=== PATIENT | female | born 1985 | race Caucasian/White ===

== ENCOUNTER 2019-01-14 08:10 | Inpatient (IN) | payer OTHER ==
[~2019-01-14] VITALS: Ht 165 cm; Wt 84.4 kg
[2019-01-14 08:43] VITALS: BP 112/74
[2019-01-14] MEDS ORDERED: PREN1TAB80 PO (08:44)
[2019-01-14] MEDS ORDERED: RINGERS SOLUTION,LACTATED 1,000 ML IV PRN (09:08)
[2019-01-14] MEDS ORDERED: OXYTOCIN 30 UNITS/LACT RINGERS 500 ML IV PRN (09:08)
[2019-01-14] MEDS ORDERED: OXYTOCIN 30 UNITS/LACT RINGERS 500 ML IV ONE ×3 (09:08→16:28)
[2019-01-14] MEDS ORDERED: METOCLOPRAMIDE HCL 5 MG/ML 2 ML VIAL IVP PRN (09:15)
[2019-01-14] MEDS ORDERED: CITRIC ACID/SODIUM CITRATE 30 ML SOLUTION UDCUP PO PRN (09:15)
[2019-01-14] MEDS: RINGERS SOLUTION,LACTATED 1,000 ML IV SCH ×2 (09:35→11:45)
[2019-01-14 09:36] LABS: BASOPHILS % (AUTO) 0.5 % (0.0-2.0); EOSINOPHILS % (AUTO) 0.1 % (1.0-6.0); HEMOGLOBIN 11.8 g/dL (12.0-16.0); LYMPHOCYTES # (AUTO) 0.9 K/uL (1.0-4.8); LYMPHOCYTES % (AUTO) 7.7 % (22.0-44.0); MEAN CORPUSCULAR HEMOGLOBIN 31.1 pg (26.0-34.0); MEAN CORPUSCULAR HGB CONC 32.7 G/dL (31.0-37.0); MEAN CORPUSCULAR VOLUME 95 fL (80-100); MONOCYTES # (AUTO) 0.6 K/uL (0.1-1.0); MONOCYTES % (AUTO) 4.7 % (2.0-9.0); NEUTROPHILS # (AUTO) 10.4 K/uL (1.8-7.7); PLATELET COUNT (AUTO)-OB 146 K/uL (150-450); RED BLOOD CELL COUNT(AUTO) 3.78 MIL/uL (4.00-5.20); RED CELL DISTRIBUTION WIDTH 13.9 % (11.5-14.5)
[2019-01-14] MEDS: FentaNYL CITRATE-PF 100 MCG/2 ML VIAL IVP PRN ×2 (10:00→10:12)
[2019-01-14] MEDS ORDERED: AMPICILLIN SODIUM 2 GM/NS 100 ML IV ONE (10:15)
[2019-01-14] MEDS ORDERED: LIDOCAINE/PF 2% 5 ML VIAL ONE (10:31)
[2019-01-14] MEDS ORDERED: ROPIVACAINE HCL/PF 0.2% 100 ML ED ONE (10:31)
[2019-01-14] MEDS ORDERED: ROPIVACAINE HCL/PF 0.2% 100 ML ED PRN (10:45)
[2019-01-14] MEDS ORDERED: ONDANSETRON HCL 4 MG/2 ML VIAL IVP PRN (10:45)
[2019-01-14] MEDS ORDERED: NALBUPHINE HCL 10 MG/ML VIAL IVP PRN (10:45)
[2019-01-14] MEDS ORDERED: DiphenhydrAMINE HCL 50 MG/ML VIAL IVP PRN (10:45)
[2019-01-14] MEDS ORDERED: MINERAL OIL 30 ML UDCUP VG ONE (13:15)
[2019-01-14] MEDS ORDERED: AMPICILLIN SODIUM 1 GM/NS 50 ML IV SCH (15:00)
[2019-01-14] MEDS ORDERED: OxyCODONE HCL/ACETAMINOPHEN 5-325 MG TABLET PO PRN ×4 (16:00→16:30)
[2019-01-14] MEDS ORDERED: MAGNESIUM HYDROXIDE SUSPENSION 30 ML UDCUP PO PRN ×2 (16:00→16:30)
[2019-01-14] MEDS ORDERED: LIDOCAINE/PF 1% 30 ML VIAL INJ PRN ×2 (16:00→16:30)
[2019-01-14] MEDS ORDERED: GLYCERIN/WITCH HAZEL LEAF 40 PADS JAR TP PRN ×2 (16:00→16:30)
[2019-01-14] MEDS ORDERED: LANOLIN 7 GM OINTMENT TP PRN ×2 (16:00→16:30)
[2019-01-14] MEDS ORDERED: BENZOCAINE 20%/MENTHOL 56 GM SPRAY CANISTER TP PRN ×2 (16:00→16:30)
[2019-01-14] MEDS ORDERED: IBUPROFEN 800 MG TABLET PO PRN ×2 (16:00→16:30)
[2019-01-14] MEDS ORDERED: OXYGEN THERAPY IH SCH (20:00)
[2019-01-14 23:11] VITALS: BP 112/74
[2019-01-15 07:11] LABS: BASOPHILS % (AUTO) 0.3 % (0.0-2.0); EOSINOPHILS % (AUTO) 0.2 % (1.0-6.0); HEMATOCRIT 31.8 % (36-46); HEMOGLOBIN 10.6 g/dL (12.0-16.0); LYMPHOCYTES # (AUTO) 1.4 K/uL (1.0-4.8); LYMPHOCYTES % (AUTO) 13.6 % (22.0-44.0); MEAN CORPUSCULAR HEMOGLOBIN 31.9 pg (26.0-34.0); MEAN CORPUSCULAR HGB CONC 33.3 G/dL (31.0-37.0); MEAN CORPUSCULAR VOLUME 96 fL (80-100); MONOCYTES # (AUTO) 0.6 K/uL (0.1-1.0); MONOCYTES % (AUTO) 5.7 % (2.0-9.0); NEUTROPHILS # (AUTO) 8.3 K/uL (1.8-7.7); NEUTROPHILS % (AUTO) 80.2 % (40.0-70.0); PLATELET COUNT (AUTO)-OB 129 K/uL (150-450); RED BLOOD CELL COUNT(AUTO) 3.31 MIL/uL (4.00-5.20); RED CELL DISTRIBUTION WIDTH 14.1 % (11.5-14.5)
[2019-01-15] MEDS ORDERED: IBUP-2071 PO (11:11)
[2019-01-15] MEDS ORDERED: DSS100 PO (11:12)
== END 2019-01-15 15:10 | disposition home or self-care (01) | DRG 807 ==
LOC: 4S 08:10 → OBSVTOIN 08:10
PROVIDERS: ADMIT Obstetrics & Gynecology; ATTEND Obstetrics & Gynecology
PROC: 10E0XZZ Delivery of Products of Conception, External Approach (ICD-10-PCS; principal; 2019-01-14)
PROC: 0HQ9XZZ Repair Perineum Skin, External Approach (ICD-10-PCS; 2019-01-14)
PROC: 3E0R3BZ Introduction of Anesthetic Agent into Spinal Canal, Percutaneous Approach (ICD-10-PCS; 2019-01-14)
PROC: 00HU33Z Insertion of Infusion Device into Spinal Canal, Percutaneous Approach (ICD-10-PCS; 2019-01-14)
DX: O99.824 Streptococcus B carrier state complicating childbirth (principal); Z37.0 Single live birth; O70.0 First degree perineal laceration during delivery; Z3A.40 40 weeks gestation of pregnancy
CPT/HCPCS: 86850; 86900; 86901; J0290; J2590; J2795; J3010; J3490; J7120

== ENCOUNTER 2020-08-14 17:20 | Inpatient (IN) | payer OTHER ==
[~2020-08-14] VITALS: Ht 165 cm; Wt 77.1 kg
[~2020-08-14 17:20] MED LIST: DSS100 PO; IBUP-2071 PO; PREN1TAB80 PO
[2020-08-14 17:51] VITALS: BP 117/72
[2020-08-14 18:56] LABS: BASOPHILS % (AUTO) 0.3 % (0.0-2.0); EOSINOPHILS % (AUTO) 0.3 % (1.0-6.0); HEMATOCRIT 33.1 % (36-46); HEMOGLOBIN 11.3 g/dL (12.0-16.0); LYMPHOCYTES # (AUTO) 1.2 K/uL (1.0-4.8); LYMPHOCYTES % (AUTO) 17.3 % (22.0-44.0); MEAN CORPUSCULAR HGB CONC 34.1 G/dL (31.0-37.0); MEAN CORPUSCULAR VOLUME 94 fL (80-100); MONOCYTES # (AUTO) 0.3 K/uL (0.1-1.0); NEUTROPHILS # (AUTO) 5.4 K/uL (1.8-7.7); NEUTROPHILS % (AUTO) 77.1 % (40.0-70.0); PLATELET COUNT (AUTO)-OB 162 K/uL (150-450); RED BLOOD CELL COUNT(AUTO) 3.53 MIL/uL (4.00-5.20)
[2020-08-14] MEDS ORDERED: BETAMETHASONE SOLUSPAN 6 MG/ML 5 ML VIAL IM SCH (20:30)
[2020-08-14] MEDS: DEXTROSE 5%-LACTATED RINGERS 1,000 ML IV SCH (21:08)
[2020-08-14 21:13] LABS: COVID AG,FIA SOURCE NASOPHARYNGEAL
[2020-08-15] MEDS: DEXTROSE 5%-LACTATED RINGERS 1,000 ML IV SCH (01:58)
[2020-08-15] MEDS ORDERED: CITRIC ACID/SODIUM CITRATE 30 ML SOLUTION UDCUP PO ONE (04:00)
[2020-08-15] MEDS ORDERED: METOCLOPRAMIDE HCL 5 MG/ML 2 ML VIAL IVP ONE (04:00)
[2020-08-15] MEDS ORDERED: RINGERS SOLUTION,LACTATED 1,000 ML IV ONE (04:00)
[2020-08-15] MEDS ORDERED: LANOLIN 7 GM OINTMENT TP PRN (04:15)
[2020-08-15] MEDS ORDERED: OXYTOCIN 30 UNITS/LACT RINGERS 500 ML IV ONE (04:15)
[2020-08-15] MEDS ORDERED: OxyCODONE HCL/ACETAMINOPHEN 5-325 MG TABLET PO PRN (04:15)
[2020-08-15] MEDS ORDERED: BUPIVACAINE HCL/DEX-WATER/PF 0.75% 2 ML AMP ITH ONE (04:48)
[2020-08-15] MEDS ORDERED: DEXAMETHASONE SOD PHOS 4 MG/ML VIAL ONE (04:48)
[2020-08-15] MEDS ORDERED: FentaNYL CITRATE PF 100 MCG/2 ML VIAL ONE (04:48)
[2020-08-15] MEDS ORDERED: MIDAZOLAM HCL 2 MG/2 ML VIAL ONE (04:48)
[2020-08-15] MEDS ORDERED: MORPHINE SULFATE/PF 1 MG/ML 10 ML AMP ONE (04:48)
[2020-08-15] MEDS ORDERED: KETOROLAC TROMETHAMINE 30 MG/ML VIAL ONE (04:49)
[2020-08-15] MEDS ORDERED: ONDANSETRON HCL 4 MG/2 ML VIAL ONE (04:49)
[2020-08-15] MEDS ORDERED: DiphenhydrAMINE HCL 50 MG/ML VIAL IVP PRN (05:45)
[2020-08-15] MEDS ORDERED: NALOXONE HCL 0.4 MG/ML VIAL IVP PRN (05:45)
[2020-08-15] MEDS ORDERED: ONDANSETRON HCL 4 MG/2 ML VIAL IVP PRN (05:45)
[2020-08-15] MEDS ORDERED: ACETAMINOPHEN 1000 MG/ISO-OSM 100 ML IV ONE (05:45)
[2020-08-15] MEDS ORDERED: OXYGEN THERAPY IH SCH ×2 (08:00)
[2020-08-15] MEDS: RINGERS SOLUTION,LACTATED 1,000 ML IV SCH ×2 (08:32→16:59)
[2020-08-15 09:18] LABS: AMPHET/METH SCREEN,URINE NEGATIVE (NEGATIVE); BARBITURATE SCREEN, URINE NEGATIVE (NEGATIVE); BENZODIAZEPINES SCREEN,URINE POSITIVE (NEGATIVE); CANNABINOID SCREEN,URINE NEGATIVE (NEGATIVE); COCAINE SCREEN,URINE NEGATIVE (NEGATIVE); METHADONE SCREEN, URINE NEGATIVE (NEGATIVE); OPIATE SCREEN,URINE NEGATIVE (NEGATIVE)
[2020-08-15 09:19] LABS: PHENCYCLIDINE SCREEN,URINE NEGATIVE (NEGATIVE)
[2020-08-15] MEDS ORDERED: EPHEDrine SULFATE 50 MG/ML VIAL IM ONE (12:00)
[2020-08-15] MEDS ORDERED: OXYTOCIN 10 UNITS/ML VIAL IM ONE (12:00)
[2020-08-15] MEDS ORDERED: DEXAMETHASONE SOD PHOS 4 MG/ML VIAL IVP ONE (12:00)
[2020-08-15] MEDS: MAGNESIUM HYDROXIDE SUSPENSION 30 ML UDCUP PO SCH (21:23)
[2020-08-16] MEDS: OxyCODONE HCL/ACETAMINOPHEN 5-325 MG TABLET PO PRN ×2 (01:01→08:42)
[2020-08-16 08:02] LABS: BASOPHILS % (AUTO) 0.2 % (0.0-2.0); EOSINOPHILS % (AUTO) 0 % (1.0-6.0); HEMATOCRIT 33.6 % (36-46); HEMOGLOBIN 11.2 g/dL (12.0-16.0); LYMPHOCYTES # (AUTO) 1.4 K/uL (1.0-4.8); LYMPHOCYTES % (AUTO) 12.1 % (22.0-44.0); MEAN CORPUSCULAR HGB CONC 33.4 G/dL (31.0-37.0); MEAN CORPUSCULAR VOLUME 96 fL (80-100); MONOCYTES # (AUTO) 0.6 K/uL (0.1-1.0); MONOCYTES % (AUTO) 5.1 % (2.0-9.0); NEUTROPHILS # (AUTO) 9.2 K/uL (1.8-7.7); NEUTROPHILS % (AUTO) 82.6 % (40.0-70.0); PLATELET COUNT (AUTO)-OB 160 K/uL (150-450); RED BLOOD CELL COUNT(AUTO) 3.51 MIL/uL (4.00-5.20)
[2020-08-16] MEDS: MAGNESIUM HYDROXIDE SUSPENSION 30 ML UDCUP PO SCH ×2 (08:42→19:48)
[2020-08-16] MEDS ORDERED: PERCT PO (09:32)
[2020-08-16] MEDS ORDERED: ACET-2247 PO (09:33)
[2020-08-16] MEDS ORDERED: IBUP-2070 PO (09:34)
[2020-08-16] MEDS ORDERED: DOCU-275 PO (09:35)
[2020-08-16] MEDS: IBUPROFEN 800 MG TABLET PO PRN (19:48)
[2020-08-17] MEDS: IBUPROFEN 800 MG TABLET PO PRN (07:59)
== END 2020-08-17 09:05 | disposition home or self-care (01) | DRG 788 ==
LOC: OBSVTOIN 17:20 → 4S 17:20
PROVIDERS: ADMIT Obstetrics & Gynecology; ATTEND Obstetrics & Gynecology
PROC: 10D00Z1 Extraction of Products of Conception, Low, Open Approach (ICD-10-PCS; principal; 2020-08-15)
DX: O69.81X0 Labor and delivery complicated by cord around neck, without compression, not applicable or unspecified (principal); O76 Abnormality in fetal heart rate and rhythm complicating labor and delivery; Z3A.36 36 weeks gestation of pregnancy; Z37.0 Single live birth; Z20.822 Contact with and (suspected) exposure to COVID-19
CPT/HCPCS: 76811; 80307; 83036; 86592; 86762; 86850; 86900; 86901; 87081; 87340; 87426; 87491; 87591; J0131; J0690; J0702; J1100; J1885; J2250; J2405; J2590; J2765; J3010; J3490; J7120